=== PATIENT | female | born 1970 | race Caucasian/White ===

== ENCOUNTER 2024-09-16 18:55 | Emergency (ER) | payer OTHER, SELFPAY ==
[2024-09-16 19:00] VITALS: BP 180/108
--- NOTE | 2024-09-16 19:43 | ED.GENMED ---
History of Present Illness
General
Chief Complaint: Musculo-Skeletal Complaint
Source: patient
Exam Limitations: none
Time Seen by Provider: 09/16/24 19:36
Nursing documentation reviewed up to this point in time: agreed with
History of Present Illness
History of Present Illness:
Patient is a 54-year-old female who presents to the ER for evaluation of right knee injury. She tripped and hyperextended her right knee. she did not fall/land on her knee.
She complains of pain with fully extending right knee and along the medial aspect. She does take meloxicam for her shoulder issues.
Past History
Past History
ED Past Medical History: Other (C. difficile, cervical cancer, kidney stones, meningitis)
ED Past Surgical History: Gynecological and Tonsilectomy
Social History
Tobacco: Smoker
Alcohol: None
Drug: None
Personal: Single
Living: with family
Employment: Employed
Review of Systems
Review of Systems
Allergies reviewed?: Yes
All Other Systems: ROS reviewed and negative except as documented in HPI and ROS
Constitutional: Reports no symptoms; Denies fever
Musculoskeletal: Reports other (right knee pain )
Phy Exam
General Physical Exam
General Presentation: no apparent distress
General age: appears stated age
General Skin: warm and dry
General Habitus: obese
General Mental: alert
General Hydration: appears well hydrated
Neurological Exam
Neurological Exam: alert and oriented x3
Musculoskeletal Exam
Musculoskeletal Exam: other (nml inspection to right knee tender along the medial aspect able to flex and extend mild discomfort fully extending; mild discomfort with medial stress)
Skin Exam
Skin Exam: normal color and warm/dry
Psychiatric Exam
Psychiatric Exam: normal mood/affect
Course
Orders/Labs/Results
Orders:
Orders
09/16/24 19:03
Knee, Right 4 or More Views [CR Knee- Right 4 Or More View*] Urgent
Comment:
Reason For Exam: TRIP AND HYPEREXTENTION OF KNEE
09/16/24 19:42
Knee Immobilizer Right-Treatme ONCE
Vital Signs
Initial and Last Documented VS:
Initial Vital Signs
Temp Pulse Resp BP Pulse Ox
98.9 F 82 24 180/108 95
09/16/24 19:00 09/16/24 19:00 09/16/24 19:00 09/16/24 19:00 09/16/24 19:00
Last Documented Vital Signs
Temp Pulse Resp BP Pulse Ox
98.9 F 82 24 180/108 95
09/16/24 19:00 09/16/24 19:00 09/16/24 19:00 09/16/24 19:00 09/16/24 19:00
MDM/Problems Addressed
Differential Diagnosis Includes:
Not limited to sprain strain meniscus injury less likely fracture
MDM/Problems Addressed:
Symptoms are consistent with sprain strain possible meniscus versus medial ligament injury will DC with knee immobilizer ice elevation and outpatient Ortho follow-up. Patient has been evaluated by [facility] in the past and does wish to stay at
[facility]. She is on meloxicam for her shoulder we will continue this
*Radiology
Radiology exam reviewed: radiology read reviewed
*Critical Care Note
Total Time (30-74mins, 75-104mins- exclusive of procedures): Not Applicable
ED Attending Note
-
Portions of this chart may have been created with voice recognition software.� Occasional wrong word or��sound alike� substitutions may have occurred due to the inherent limitations of voice recognition software.
Discharge Plan
Departure
Patient Disposition: Home (Routine Discharge)
Date of Disposition: 09/16/24
Time of Disposition: 19:47
Patient with high blood pressure during this ER visit?: Yes
Covid-19: Not Applicable
Discharge Problem:
Knee sprain
Instructions: Knee Immobilizer (DC), Knee Sprain (DC)
Prescriptions:
No Action
sulfamethoxazole-trimethoprim 1 TABLET tablet
1 tab PO BID Qty: 18 0RF
valacyclovir [Valtrex] 1,000 MG tablet
500 mg PO DAILY
naproxen sodium [Aleve] 220 MG tablet
220 mg PO DAILY PRN (Reason: pain)
hydrocodone-acetaminophen 1 TABLET tablet
1 - 2 tab PO Q4HPRN PRN (Reason: pain) Qty: 12 0RF
Referrals:
Max Monson MD [Family Provider] -
Nicanor Chavez MD [Active] -
Activity Restrictions/Additional Instructions:
As discussed ice affected area for the next 24 hours 20 minutes at home several times a day.
Keep elevated as much as possible. Wear immobilizer for support with ambulation remove at night while sleeping. Follow-up with orthopedics.
please call tomorrow to make an appointment return if any worsening of symptoms.
Interventions
Interventions:
*Risk Screen - Suicide Last Done: 09/16/24 19:00
*Neglect/Abuse Screening Last Done: 09/16/24 19:00
ED-Musculoskeletal Assessment Last Done: 09/16/24 19:43
Discharge Date and Time
Print Language: SWISS
[2024-09-16 19:56] VITALS: BP 152/78
== END 2024-09-16 20:12 | disposition home or self-care (01) ==
LOC: EMR 18:55
PROVIDERS: EMERGENCY PHYSICIAN Emergency Medicine; FAMILY PHYSICIAN Family Medicine
DX: S83.91XA Sprain of unspecified site of right knee, initial encounter (principal); W18.40XA Slipping, tripping and stumbling without falling, unspecified, initial encounter; R03.0 Elevated blood-pressure reading, without diagnosis of hypertension; F17.200 Nicotine dependence, unspecified, uncomplicated
CPT/HCPCS: 99283; 29505; 73564